=== PATIENT | female | born 1985 | race Two or more races ===

== ENCOUNTER → 2017-05-06 | Outpatient (CLI) | payer MEDICAID | LOC: FIMAGING 16:23 | PROVIDERS: ATTEND Family Medicine | DX: J98.9 Respiratory disorder, unspecified (principal); J45.909 Unspecified asthma, uncomplicated ==

== ENCOUNTER → 2017-07-08 | Outpatient (CLI) | payer MEDICAID | LOC: FIMAGING 11:11 | PROVIDERS: ATTEND Physician Assistant Medical | DX: N20.1 Calculus of ureter (principal) ==

== ENCOUNTER 2018-07-29 20:42 | Emergency (ER) | payer MEDICAID ==
[2018-07-29] MEDS ORDERED: LORazepam 2 MG/ML INJ IVP ONE (21:10)
[2018-07-29] MEDS ORDERED: KETOROLAC 30 MG/1 ML SDV IVP ONE (21:10)
[2018-07-29] MEDS ORDERED: NS 1,000 ML IV ONE (21:10)
[2018-07-29] MEDS ORDERED: DEXAMETHASONE 10 MG/ML VIAL IVP ONE (21:10)
--- NOTE | 2018-07-29 21:10 | EDPHY ---
H & P Stated Complaint: KIM, dizzy, N/V x1 hour Time Seen by Provider: 07/29/18 21:07 HPI/ROS: HPI: This is a 32-year-old female who presents with Chief Complaint: KIM, dizzy, N/V x1 hour Location: Generalized head Quality: Pain Duration: 1 hr prior to arrival Signs and Symptoms: no fever, + nausea, + vomiting, + photophobia, no noise sensitivity, no neck stiffness, no ear pain, no tinnitus, no nasal congestion, no sinus pressure, no weakness, no radiation, no aura Timing: Acute, constant Severity: Moderate Context: Patient has a history of diabetes mellitus, migraine headaches, IUD in place, reports that she was sitting down completing papers when she started to developed generalized headache that is described as constant and moderate in nature but not the worse headache of her life accompanied by nausea and 1 episode of vomiting and photophobia. Patient reports that this is similar presentation to her prior migraine headaches. She has tried nothing for the symptoms. She reports that when she ambulates she feels dizzy. Denies fever, abdominal pain, diarrhea, urinary symptoms, vision changes. Denies any thunderclap symptoms. Modifying Factors: None Comment: ROS: A comprehensive 10 system review of systems is otherwise negative aside from elements mentioned in the history of present illness. MEDICAL/SURGICAL/SOCIAL HISTORY: Medical history: Diabetes mellitus. IUD in place. Surgical history: Tonsillectomy Social history: Single. Nonsmoker. Family history noncontributory. CONSTITUTIONAL: Extremely well-appearing, slightly anxious, overweight female, awake and alert, no obvious distress HEENT: Atraumatic and normocephalic, PERRL, EOMI. No Nystagmus noted. Nares patent; no rhinorrhea; no nasal mucosal edema. Tympanic membranes clear. Oropharynx clear, no exudate and moist pink mucosa. Airway patent. No lymphadenopathy. No meningismus. Cardiovascular: Normal S1/S2, regular rate, regular rhythm, without murmur rub or gallop. PULMONARY/CHEST: Symmetrical and nontender. Clear to auscultation bilaterally. Good air movement. No accessory muscle usage. ABDOMEN: Soft, nondistended, nontender, no rebound, no guarding, no peritoneal signs, no masses or organomegaly. No CVAT. EXTREMITIES: 2/2 pulses, strength 5/5, no deformities, no clubbing, no cyanosis or edema. NEUROLOGICAL: no focal neuro deficits. GCS 15. No reproduction of dizziness with Hewitt-Hallpike maneuver. Normal [id number]-[id number] test. Normal [id number] test. Normal cerebellar testing. Ambulatory without deficits. Speech normal SKIN: Warm and dry, multiple tattoos covering body, no erythema. no rash. Good capillary refill. Source: Patient Exam Limitations: No limitations - Personal History LMP (Females 10-55): IUD In Place Current Tetanus/Diphtheria Vaccine: Yes Tetanus Vaccine Date: 2008 - Medical/Surgical History Hx Asthma: No Hx Chronic Respiratory Disease: No Hx Diabetes: No Hx Cardiac Disease: No Hx Renal Disease: No Hx Cirrhosis: No Hx Alcoholism: No Hx HIV/AIDS: No Hx Splenectomy or Spleen Trauma: No Other PMH: DM, tonisillectomy - Social History Smoking Status: Never smoked Constitutional: Initial Vital Signs Temperature (C) 36.3 C 07/29/18 20:45 Heart Rate 86 07/29/18 20:45 Respiratory Rate 20 07/29/18 20:45 Blood Pressure 127/94 H 07/29/18 20:45 O2 Sat (%) 96 07/29/18 20:45 O2 Delivery Mode Room Air Allergies/Adverse Reactions: No Known Allergies Allergy (Verified 07/29/18 20:47) Home Medications: Medication Instructions Recorded Ibuprofen 02/20/16 Acet/Caffeine/Buta Fioricet 1 each PO Q6 PRN #10 tab 07/29/18 [Fioricet (*)] Albuterol 07/29/18 Promethazine HCl [Phenergan 25mg 25 mg PO Q6 PRN #10 tab 07/29/18 (*)] glipiZIDE 07/29/18 metFORMIN HCL 07/29/18 Medical Decision Making ED Course/Re-evaluation: Vital signs reviewed and stable upon arrival. No systemic signs. IV access and laboratory studies ordered No neurological deficits to warrant head CT or MRI imaging This is a typical headache presentation migraine type per patient. Given 1 L normal saline, IV Ativan 1 mg, IV Toradol, IV Decadron 10 mg and IV Benadryl 25 mg 2210: Reassessed patient who reports that her headache has 75% improved but she still feels mild dizziness. She has been sleeping for the last 1 and 0.5 hr. 2255: Reassessed patient after IV fluids who reports improvement in dizziness and headache at this time. She reports that she has not had a headache in some time and normally follows with her primary care provider but does not have any headache medications or nausea medications. I will give her a prescription for Fioricet and promethazine. No signs of CVA, temporal arteritis, Richards's palsy, intractable status migrainous. This patient was seen under the supervision of my secondary supervising physician. I evaluated care for this patient independently. Discussed this patient with Dr. Isaac who did not see the patient. Differential Diagnosis: Headache including but not limited to subarachnoid hemorrhage, migraine headache , tension headache and infectious causes such as meningitis, pharyngitis and sinusitis. - Data Points Laboratory Results: Laboratory Results 07/29/18 21:23 07/29/18 21:23 07/29/18 07/29/18 07/29/18 21:23 21:23 21:23 WBC 12.21 10^3/uL H 10^3/uL (3.80-9.50) RBC 5.46 10^6/uL H 10^6/uL (4.18-5.33) Hgb 16.1 g/dL g/dL (12.6-16.3) Hct 46.3 % % (38.0-47.0) MCV 84.8 fL fL (81.5-99.8) MCH 29.5 pg pg (27.9-34.1) MCHC 34.8 g/dL g/dL (32.4-36.7) RDW 12.2 % % (11.5-15.2) Plt Count 327 10^3/uL 10^3/uL (150-400) MPV 11.2 fL fL (8.7-11.7) Neut % (Auto) 65.7 % % (39.3-74.2) Lymph % (Auto) 25.8 % % (15.0-45.0) Roosevelt % (Auto) 7.2 % % (4.5-13.0) Eos % (Auto) 0.5 % L % (0.6-7.6) Baso % (Auto) 0.5 % % (0.3-1.7) Nucleat RBC Rel Count 0.0 % % (0.0-0.2) Absolute Neuts (auto) 8.02 10^3/uL H 10^3/uL (1.70-6.50) Absolute Lymphs (auto) 3.15 10^3/uL H 10^3/uL (1.00-3.00) Absolute Monos (auto) 0.88 10^3/uL H 10^3/uL (0.30-0.80) Absolute Eos (auto) 0.06 10^3/uL 10^3/uL (0.03-0.40) Absolute Basos (auto) 0.06 10^3/uL 10^3/uL (0.02-0.10) Absolute Nucleated RBC 0.00 10^3/uL 10^3/uL (0-0.01) Immature Gran % 0.3 % % (0.0-1.1) Immature Gran # 0.04 10^3/uL 10^3/uL (0.00-0.10) Sodium 134 mEq/L L mEq/L (135-145) Potassium 5.2 mEq/L mEq/L (3.5-5.2) Chloride 103 mEq/L mEq/L (97-110) Carbon Dioxide 22 mEq/l mEq/l (22-31) Anion Gap 9 mEq/L mEq/L (6-14) BUN 11 mg/dL mg/dL (7-23) Creatinine 0.4 mg/dL L mg/dL (0.6-1.0) Estimated GFR > 60 Glucose 330 mg/dL H mg/dL (70-100) Calcium 9.8 mg/dL mg/dL (8.5-10.4) Beta HCG, Qual NEGATIVE Specimen Hemolysis 109 Medications Given: Discontinued Medications Dexamethasone (Decadron Injection) 10 mg IVP EDNOW ONE Stop: 07/29/18 21:11 Last Admin: 07/29/18 21:40 Dose: 10 mg Diphenhydramine HCl (Benadryl Injection) 25 mg IVP EDNOW ONE Stop: 07/29/18 21:11 Last Admin: 07/29/18 21:36 Dose: 25 mg Sodium Chloride (Ns) 1,000 mls @ 0 mls/hr IV ONCE ONE; Wide Open PRN Reason: Protocol Stop: 07/29/18 21:11 Last Admin: 07/29/18 21:39 Dose: 1,000 mls Ketorolac Tromethamine (Toradol) 30 mg IVP EDNOW ONE Stop: 07/29/18 21:11 Last Admin: 07/29/18 21:35 Dose: 30 mg Lorazepam (Ativan Injection) 1 mg IVP EDNOW ONE Stop: 07/29/18 21:11 Last Admin: 07/29/18 21:39 Dose: 1 mg Departure - Departure Disposition: Home, Routine, Self-Care Clinical Impression: Migraine headache without aura Qualifiers: Status migrainosus presence: without status migrainosus Intractability: not intractable Qualified Code(s): G43.009 - Migraine without aura, not intractable , without status migrainosus Condition: Good Instructions: Migraine Headache (ED) Additional Instructions: Rest as much as possible until you are feeling better. Consume a minimum of 8-10 glasses of water or electrolyte fluid replacement drinks that include Gatorade, Powerade, Pedialyte. Eat a bland diet for the next 48 hours and then slowly advance as tolerated. Take promethazine 1 tab every 4 hours as needed for nausea, vomiting. Take Fioricet 1 tab every 6 hr as needed for headache not relieved by Tylenol or ibuprofen. Referrals: Jonah Braswell DO [Primary Care Provider] - As per Instructions Stand Alone Forms: Work Excuse Prescriptions: Acet/Caffeine/Buta Fioricet [Fioricet (*)] 1 each PO Q6 PRN #10 tab PRN Reason: Headache, Migrane Promethazine HCl [Phenergan 25mg (*)] 25 mg PO Q6 PRN #10 tab PRN Reason: Nausea/Vomiting, Use 1st
[2018-07-29 21:30] LABS: PLATELET COUNT 327 10^3/uL (150-400)
[2018-07-29] MEDS ORDERED: DEXAMETHASONE 4 MG/ML VIAL ONE (21:31)
[2018-07-29 23:22] VITALS: BP 108/79
== END 2018-07-29 23:20 | disposition home or self-care (01) ==
DX: G43.009 Migraine without aura, not intractable, without status migrainosus (principal); E86.9 Volume depletion, unspecified
CPT/HCPCS: 96374; J1100; J1200; J1885; J2060